=== PATIENT | female | born 2005 | race Hispanic/Latino ===

== ENCOUNTER 2024-11-12 19:00 | Inpatient (IN) | payer MEDICAID, OTHER ==
[2024-11-12] MEDS ORDERED: Ondansetron PF 4 MG/2 ML Vial IVP PRN (20:32)
[2024-11-12] MEDS ORDERED: hydrALAZINE 20 MG/ML VIAL SLOW IVP PRN (20:32)
[2024-11-12] MEDS ORDERED: Promethazine HCl 25 MG/ML VIAL IM PRN (20:32)
[2024-11-12] MEDS ORDERED: Lidocaine 1% (PF) 30 ML VIAL SC PRN (20:32)
[2024-11-12] MEDS ORDERED: Methylergonovine 0.2 MG/ML VIAL IM PRN (20:33)
[2024-11-12] MEDS ORDERED: Ibuprofen 800 MG TAB PO PRN (20:33)
[2024-11-12] MEDS ORDERED: Carboprost 250 MCG/ML AMP IM PRN (20:33)
[2024-11-12] MEDS ORDERED: Diphenoxylate HCl/Atropine Tablet PO PRN (20:33)
[2024-11-12] MEDS ORDERED: Acetaminophen 500 MG TAB PO PRN (20:33)
[2024-11-12] MEDS ORDERED: Tranexamic Acid 1,000 MG/10 ML VIAL IVP PRN (20:33)
[2024-11-12] MEDS ORDERED: Misoprostol 200 MCG TAB PR PRN (20:33)
[2024-11-12 20:44] VITALS: BMI 25.7
[2024-11-12] MEDS ORDERED: Lactated Ringer's 1,000 ML IV SCH (20:45)
[2024-11-12] MEDS ORDERED: Oxytocin 30 units/NS 500 ML 500 ML IV SCH ×3 (20:45)
[2024-11-12 21:13] LABS: Hemoglobin 11.6 g/dL (12.0-15.5); Mean Corpuscular HGB CONC 35.2 g/dL (32.0-36.0); Mean Corpuscular Hemoglobin 32.1 pg (27.0-33.0); Mean Corpuscular Volume 91.4 fL (81.6-98.3); Mean Platelet Volume 12.3 fL (7.4-10.4); Platelet Count 165 10x3/uL (150-450); RBC Distribution Width 12.3 % (11.5-14.5); Red Blood Cell (RBC) Count 3.61 10x6/uL (3.90-5.03)
[2024-11-12] MEDS ORDERED: Calcium Carbonate 500 MG ChewTAB PO PRN (21:42)
[2024-11-12] MEDS: Misoprostol 100 MCG TAB VAG SCH (21:42)
[2024-11-12 21:52] LABS: HBsAg Index 0.23 S/CO (0-0.99); Hep B Surf Ag - L&D Non-Reactive S/CO (NonReactive); Syphilis Antibody Nonreactive (Nonreactive); Syphilis Antibody Index 0.03 S/CO (<1.00 Non-Reactive)
[2024-11-12 22:41] LABS: ALT (SGPT) 20 U/L (8-55); AST (SGOT) 24 U/L (5-34); Albumin 2.9 g/dL (3.5-5.0); Alkaline Phosphatase 310 U/L (40-110); Anion Gap 14 mmol/L (10-20); BUN (Urea Nitrogen) 14 mg/dL (7.0-18.7); Bilirubin, Total 0.5 mg/dL (0.2-1.2); Calc. Creatinine Clearance 99 mL/min (70-130); Calcium 8.7 mg/dL (7.8-10.44); Carbon Dioxide 18 mmol/L (22-29); Chloride 107 mmol/L (98-107); Estimated GFR 118; Globulin 3.8 g/dL (2.4-3.5); Glucose 89 mg/dL (70-105); Potassium 4.2 mmol/L (3.5-5.1); Protein, Total 6.7 g/dL (6.0-8.3); Sodium 135 mmol/L (136-145)
[2024-11-12 23:06] LABS: Creatinine, Urine 51.76 mg/dL (47-110); Protein, Urine Random Quant Less than 10 mg/dL (1-14)
[2024-11-12] MEDS: Famotidine 20 MG TAB PO SCH (23:54)
[2024-11-13] MEDS: diphenhydrAMINE 30 GM TUBE TOP SCH (00:03)
[2024-11-13] MEDS: fentaNYL 50 mcg/mL 1 mL Vial SLOW IVP SCH (02:07)
[2024-11-13] MEDS ORDERED: diphenhydrAMINE 50 MG/ML VIAL IVP PRN ×2 (04:33→10:19)
[2024-11-13] MEDS ORDERED: Naloxone HCl 0.4 mg/ml Vial IVP PRN ×4 (04:33→10:19)
[2024-11-13] MEDS ORDERED: Acetaminophen 325 MG TAB PO PRN (04:33)
[2024-11-13] MEDS ORDERED: Promethazine HCl 25 MG/ML VIAL IM PRN ×2 (04:33→10:19)
[2024-11-13] MEDS ORDERED: ePHEDrine Sulfate 50 MG/10 ML VIAL SLOW IVP PRN (04:33)
[2024-11-13] MEDS ORDERED: Ondansetron PF 4 MG/2 ML Vial IVP PRN ×3 (04:33→10:19)
[2024-11-13] MEDS ORDERED: Lactated Ringer's 500 ML IV PRN (04:33)
[2024-11-13] MEDS ORDERED: Moisturizing Cream (Eucerin) 113 GM JAR TOP PRN ×2 (04:33→10:19)
[2024-11-13] MEDS ORDERED: fentaNYL 2 mcg/Ropivacaine 0.2% Epidural 100 ML CADD EPIDURAL SCH (04:45)
[2024-11-13] MEDS ORDERED: Bisacodyl 10 MG SUPP PR PRN (06:14)
[2024-11-13] MEDS ORDERED: Milk Of Magnesia 30 ML UDCUP PO PRN (06:14)
[2024-11-13] MEDS ORDERED: Famotidine/PF 20 mg/2ml Vial SLOW IVP PRN (08:43)
[2024-11-13] MEDS ORDERED: Bicitra 30 ML UDCUP PO PRN (08:43)
[2024-11-13] MEDS ORDERED: Azithromycin 500 MG in Sodium Chloride 0.9% 250 ML 250 ML IVPB SCH (08:45)
[2024-11-13] MEDS: CEFAZOLIN 2 GM in Sodium Chloride 0.9% 100 ML IVPB SCH (08:54)
[2024-11-13 09:27] LABS: Analyzer IN Cardio CS NICU; RapidComm Collect By CBN
[2024-11-13 09:28] LABS: Analyzer IN Cardio CS NICU; RapidComm Collect By CBN; pH (Cord, venous) 7.281 (7.250-7.350)
[2024-11-13] MEDS ORDERED: hydrALAZINE 20 MG/ML VIAL SLOW IVP PRN (10:16)
[2024-11-13] MEDS ORDERED: Simethicone Chewable 80 MG TAB PO PRN (10:16)
[2024-11-13] MEDS ORDERED: Meperidine HCl/PF 25 MG (1 mL) VIAL SLOW IVP PRN (10:19)
[2024-11-13] MEDS ORDERED: Naloxone HCl 0.4 mg/ml Vial IV PRN (10:19)
[2024-11-13] MEDS ORDERED: fentaNYL 50 mcg/mL 1 mL Vial SLOW IVP PRN (10:19)
[2024-11-13] MEDS ORDERED: [UNRECOGNIZED DRUG - REMARK] FS SCH (10:30)
[2024-11-13] MEDS ORDERED: Ibuprofen 800 MG TAB PO SCH (14:00)
[2024-11-13] MEDS: fentaNYL/Ropivacaine Epidural 100 ML ONE (17:28)
[2024-11-13] MEDS: Boostrix 0.5 ML (Tdap) VIAL (>/=7 yrs of age) IM ONE (17:28)
[2024-11-13] MEDS: CEFAZOLIN 2 GM VIAL ONE (17:29)
[2024-11-13] MEDS: Lidocaine 2% MPF 10 ML AMP (For Epidural Use) ONE (17:29)
[2024-11-13] MEDS: Famotidine 20 MG TAB PO SCH (17:29)
[2024-11-13] MEDS: Docusate 100 MG CAP PO SCH (17:29)
[2024-11-13] MEDS: fentaNYL 50 mcg/mL 1 mL Vial ONE (17:29)
[2024-11-13] MEDS: Ferrous Sulfate 325 MG TAB PO SCH (17:29)
[2024-11-13] MEDS: Azithromycin 500 MG VIAL ONE (17:29)
[2024-11-13] MEDS: Morphine PF 10 MG/10 ML VIAL ONE (17:30)
[2024-11-13] MEDS: PROPOFOL 20 ML ONE (17:30)
[2024-11-13] MEDS: diphenhydrAMINE 50 MG/ML VIAL ONE (17:30)
[2024-11-13] MEDS: Oxytocin 10 UNITS/ML VIAL ONE (17:30)
[2024-11-13] MEDS: Dexamethasone 10 MG/ML VIAL ONE (17:30)
[2024-11-13] MEDS: Ketorolac Tromethamine 30 MG (1 mL) VIAL ONE (17:30)
[2024-11-13] MEDS: Ondansetron PF 4 MG/2 ML Vial ONE (17:30)
[2024-11-13] MEDS: Ketorolac Tromethamine 30 MG (1 mL) VIAL IVP SCH (17:34)
[2024-11-14 03:54] LABS: Hematocrit 25.7 % (34.9-44.5); Hemoglobin 9.3 g/dL (12.0-15.5); Mean Corpuscular HGB CONC 36.2 g/dL (32.0-36.0); Mean Corpuscular Hemoglobin 33.5 pg (27.0-33.0); Mean Corpuscular Volume 92.4 fL (81.6-98.3); Platelet Count 142 10x3/uL (150-450); RBC Distribution Width 12.7 % (11.5-14.5); Red Blood Cell (RBC) Count 2.78 10x6/uL (3.90-5.03); White Blood Cell (WBC) Count 14.91 10x3/uL (3.5-10.5)
[2024-11-14] MEDS ORDERED: HYDROcodone/Acetaminophen 5/325 mg Tablet PO PRN (05:00)
[2024-11-14] MEDS ORDERED: Bupivacaine PF 0.5% 30 ML VIAL ONE (16:00)
[2024-11-14] MEDS ORDERED: Lidocaine 2% MPF 10 ML AMP (For Epidural Use) ONE (16:00)
[2024-11-14] MEDS: Ibuprofen 800 MG TAB PO SCH (19:34)
[2024-11-15 08:20] VITALS: BP 110/67; TEMP 97.9
[2024-11-15] MEDS: HYDROcodone/Acetaminophen 5/325 mg Tablet PO PRN (08:26)
== END 2024-11-15 18:31 | disposition home or self-care (01) | DRG 788 ==
LOC: CSHLD 19:55 → CSHPED 11-13 13:20
PROVIDERS: ADMIT Family Medicine; ATTEND Family Medicine
PROC: 10D00Z1 Extraction of Products of Conception, Low, Open Approach (ICD-10-PCS; principal; 2024-11-13)
DX: O76 Abnormality in fetal heart rate and rhythm complicating labor and delivery (principal); O62.1 Secondary uterine inertia; O99.62 Diseases of the digestive system complicating childbirth; K21.9 Gastro-esophageal reflux disease without esophagitis; O99.02 Anemia complicating childbirth; D50.9 Iron deficiency anemia, unspecified; Z79.899 Other long term (current) drug therapy; O69.81X0 Labor and delivery complicated by cord around neck, without compression, not applicable or unspecified; O77.0 Labor and delivery complicated by meconium in amniotic fluid
CPT/HCPCS: 36415; 51702; 80053; 82570; 82805; 84156; 85027; 86780; 86850; 86900; 86901; 87340; J0665; J1100; J1200; J1885; J2274; J2405; J2590; J2704; J3010